=== PATIENT | male | born 1975 | race African-American/Black ===

== ENCOUNTER 2017-06-04 10:38 | Emergency (ER) | payer SELFPAY ==
[2017-06-04] MEDS ORDERED: PENICILLIN VK 500 MG TAB PO ONE (12:42)
--- NOTE | 2017-06-04 12:42 | EDPHY ---
H & P Time Seen by Provider: 06/04/17 12:29 HPI/ROS: CHIEF COMPLAINT: Dental pain HISTORY OF PRESENT ILLNESS: 41-year-old male presents with dental pain. Onset left upper dental pain 3 days ago. The pain has been gradually increasing since then and is constant. Having difficulty eating because of pain. Associated with some swelling. No fever. ROS: No numbness, weakness, bleeding, syncopal episode, other injury. Past Medical/Surgical History: Denies Smoking Status: Current every day smoker Physical Exam: General Appearance: Alert, pleasant Eyes: Pupils equal and round ENT, Mouth: tenderness and swelling over the gumline of the left upper molars, upper molar tenderness, Mucous membranes moist, no facial swelling Neck: Normal inspection, no adenopathy or swelling Skin: Warm and dry, no rash Psychiatric: Mood and affect normal Constitutional: Initial Vital Signs Temperature (C) 36.4 C 06/04/17 10:46 Heart Rate 64 06/04/17 10:46 Respiratory Rate 18 06/04/17 10:46 Blood Pressure 156/103 H 06/04/17 10:46 O2 Sat (%) 100 06/04/17 10:46 O2 Delivery Mode Room Air Allergies/Adverse Reactions: No Known Allergies Allergy (Unverified 06/04/17 10:46) Home Medications: Medication Instructions Recorded Hydrocodone/APAP 5/325 [[place] 1 - 2 tab PO Q4H PRN #15 tab 06/04/17 5/325 (*)] Penicillin V Potassium 500 mg PO TID #30 tablet 06/04/17 Departure - Departure Disposition: Home, Routine, Self-Care Clinical Impression: Dental abscess Condition: Good Instructions: Dental Abscess (ED) Referrals: [facility] [Outside] - As per Instructions (Call to make an appointment or go to the clinic.) Prescriptions: Hydrocodone/APAP 5/325 [[place] 5/325 (*)] 1 - 2 tab PO Q4H PRN #15 tab PRN Reason: Pain, Moderate Penicillin V Potassium 500 mg PO TID #30 tablet
[2017-06-04] MEDS ORDERED: PENICILLIN VK 250 MG TAB ONE (12:53)
[2017-06-04 13:14] VITALS: BP 145/98; PULSE 74; RESP 20; TEMP 98.2; O2SAT 95
== END 2017-06-04 13:10 | disposition home or self-care (01) ==
DX: K04.7 Periapical abscess without sinus (principal); F17.200 Nicotine dependence, unspecified, uncomplicated

== ENCOUNTER 2017-08-07 19:59 | Emergency (ER) | payer SELFPAY ==
[2017-08-07 20:16] VITALS: RESP 18
[2017-08-07] MEDS ORDERED: AZITHROMYCIN 250 MG TAB PO ONE (20:23)
--- NOTE | 2017-08-07 20:26 | EDPHY ---
H & P Stated Complaint: COUGH AND CONGESTION WITH FEVER X 4 DAYS Time Seen by Provider: 08/07/17 20:18 HPI/ROS: CHIEF COMPLAINT: Cough HISTORY OF PRESENT ILLNESS: The patient is a 42-year-old man with no significant past medical history comes to the emergency department complaining of a staccato cough that ends in vomiting. He states that his had these symptoms a few days ago but is now improving. He has not had a fever. No trouble breathing. No headache. No chest pain. REVIEW OF SYSTEMS: Constitutional: denies: chills, fever, recent illness, recent injury EENTM: denies: blurred vision, double vision, nose congestion Respiratory: see HPI Cardiac: denies: chest pain, irregular heart rate, lightheadedness, palpitations Gastrointestinal/Abdominal: denies: abdominal pain, diarrhea, nausea, vomiting, blood streaked stools Genitourinary: denies: dysuria, frequency, hematuria, pain Musculoskeletal: denies: joint pain, muscle pain Skin: denies: lesions, rash, jaundice, bruising Neurological: denies: headache, numbness, paresthesia, tingling, dizziness, weakness Hematologic/Lymphatic: denies: blood clots, easy bleeding, easy bruising Immunologic/allergic: denies: HIV/AIDS, transplant EXAM: GENERAL: Well-appearing, well-nourished and in no acute distress. HEAD: Atraumatic, normocephalic. EYES: Pupils equal round and reactive to light, extraocular movements intact, sclera anicteric, conjunctiva are normal. ENT: TMs normal, nares patent, oropharynx erythematous without exudates. Moist mucous membranes. NECK: Normal range of motion, supple without lymphadenopathy or JVD. LUNGS: Breath sounds clear to auscultation bilaterally and equal. No wheezes rales or rhonchi. HEART: Regular rate and rhythm without murmurs, rubs or gallops. ABDOMEN: Soft, nontender, normoactive bowel sounds. No guarding, no rebound. No masses appreciated. BACK: No CVA tenderness, no spinal tenderness, step-offs or deformities EXTREMITIES: Normal range of motion, no pitting or edema. No clubbing or cyanosis. NEUROLOGICAL: Cranial nerves II through XII grossly intact. Normal speech, normal gait. 5/5 strength, normal movement in all extremities, normal sensation PSYCH: Normal mood, normal affect. SKIN: Warm, dry, normal turgor, no visible rashes or lesions. Source: Patient Exam Limitations: No limitations - Personal History Current Tetanus/Diphtheria Vaccine: No - Medical/Surgical History Hx Asthma: No Hx Chronic Respiratory Disease: No Hx Diabetes: No Hx Cardiac Disease: No Hx Renal Disease: No Hx Cirrhosis: No Hx Alcoholism: No Hx HIV/AIDS: No Hx Splenectomy or Spleen Trauma: No Other PMH: htn(stopped taking meds)HASNT TAKEN MEDS IN 9 YEARS - Family History Significant Family History: No pertinent family hx - Social History Smoking Status: Current every day smoker Alcohol Use: Sober Drug Use: None Constitutional: Initial Vital Signs Temperature (C) 37.1 C 08/07/17 20:12 Heart Rate 86 08/07/17 20:12 Respiratory Rate 18 08/07/17 20:12 Blood Pressure 183/120 H 08/07/17 20:12 O2 Sat (%) 97 08/07/17 20:12 O2 Delivery Mode Room Air Allergies/Adverse Reactions: No Known Allergies Allergy (Unverified 06/04/17 10:46) Home Medications: Medication Instructions Recorded AZITHROMYCIN [Z-PACK] 250 mg PO DAILY #6 tab 08/07/17 Medical Decision Making ED Course/Re-evaluation: The patient's symptoms are consistent with pertussis. He has not had a pertussis vaccine recently. I will start him on azithromycin. He agrees with this plan. He declines further workup or testing at this time. Otherwise he is well appearing. Differential Diagnosis: Partial list of the Differential diagnosis considered include but were not limited to; pertussis, sinusitis, upper respiratory tract infection and although unlikely based on the history and physical exam, I also considered pneumonia, pneumothorax, PE, acute coronary disease. - Data Points Microbiology Results: MICROBIOLOGY 08/07/17 20:33 Nasal, Sinus - Anaerobic Tube/Swab Respiratory Panel (PCR) - Final Human Rhinovirus/Enterovirus Medications Given: Discontinued Medications Azithromycin (Zithromax) 500 mg PO EDNOW ONE PRN Reason: Protocol Stop: 08/07/17 20:24 Last Admin: 08/07/17 20:30 Dose: 500 mg Departure - Departure Disposition: Home, Routine, Self-Care Clinical Impression: Cough Condition: Fair Instructions: Pertussis (ED), Acute Cough (ED) Referrals: NONE *PRIMARY CARE P,. [Primary Care Provider] - As per Instructions [facility],. [Clinic] - As per Instructions Stand Alone Forms: Work Excuse Prescriptions: AZITHROMYCIN [Z-PACK] 250 mg PO DAILY #6 tab
[2017-08-07 20:58] VITALS: BP 169/105; PULSE 71; TEMP 98.2; O2SAT 98
== END 2017-08-07 20:58 | disposition home or self-care (01) ==
DX: R05 Cough (principal); I10 Essential (primary) hypertension; F17.200 Nicotine dependence, unspecified, uncomplicated

== ENCOUNTER 2017-08-25 13:47 | Emergency (ER) | payer SELFPAY ==
[2017-08-25] MEDS ORDERED: LORazepam 1 MG TAB PO ONE (16:05)
--- NOTE | 2017-08-25 16:06 | EDPHY ---
H & P Stated Complaint: abdominal cramping x 1 year. states goes between, constipation & diarrhea Time Seen by Provider: 08/25/17 15:54 HPI/ROS: CHIEF COMPLAINT: Diarrhea, constipation x1 year l HISTORY OF PRESENT ILLNESS: 42-year-old male with no prior history of abdominal surgeries, local primary care provider, took the bus to the ER, stating for the past 1 year he has had intermittent episodes waxing between constipation and diarrhea. He will sometimes experience abdominal cramping. Today when he is having a bowel movement stated he had push really hard to get the stool out of experienced abdominal cramping. He is currently asymptomatic. He watched multiple YouTube videos before coming to the ER and states that he is concerned that he may have colon cancer or irritable bowel syndrome based on videos he watched. At no point has experienced nausea or vomiting. He drinks heavy alcohol on a daily basis, last drink of alcohol was last evening. States that he is currently feeling anxious and tremulous as well. He denies genitalia pain. Denies urinary abnormality. Denies back or flank pain. PRIMARY CARE PROVIDER: none REVIEW OF SYSTEMS: A ten point review of systems was performed and is negative with the exception of the items mentioned in the HPI PAST MEDICAL & SURGICAL HISTORY: No history of abdominal surgeries SOCIAL HISTORY: Heavy daily alcohol use last drink last evening PHYSICAL EXAM (Prior to examination, patient consented to physical exam, hands were washed and my usual and customary physical exam procedures followed) 1) GENERAL: Well-developed, well-nourished, alert and oriented. Appears to be in no acute distress. He is resting comfortably when I enter the room, appears well. Tremulous 2) HEAD: Normocephalic, atraumatic 3) HEENT: Pupils equal, round, reactive to light bilaterally. Sclera anicteric. Nasopharynx, oropharynx, clear, no lesions. Moist mucous membranes 4) NECK: Full range of motion, no meningeal signs. 5) LUNGS: Clear auscultation bilaterally, no wheezes, no rhonchi, no retractions. 6) HEART: Regular rate and rhythm, no murmur, no heave, no gallop. 7) ABDOMEN: No guarding, no rebound, no focal tenderness, negative McBurney's, negative Gilliland's, negative Rovsing's, negative peritoneal sign, I am unable to elicit any abdominal pain whatsoever 8) MUSCULOSKELETAL: Moving all extremities, no focal areas of tenderness, no obvious trauma. No peripheral edema or discoloration. 9) BACK: No CVA tenderness, no midline vertebral tenderness, no fluctuance, no step-off, no obvious trauma, no visual or palpable abnormality. 10) SKIN: No rash, no petechiae. 11) normal male external genitalia bilateral testicles descended, nontender, non high-riding, bilateral cremasteric reflex present and brisk bilaterally. No scrotal abnormality such as cellulitis or Kaushal's gangrene. . DIFFERENTIAL DIAGNOSIS: My differential diagnosis includes, but is not limited to, acute appendicitis, acute cholecystitis, bowel obstruction, acute pancreatitis, testicular torsion, gastritis and urinary tract infection. The patient understands that this diagnosis is provisional and can never be 100% accurate. This is a partial list of diagnoses considered. These considerations are based on history, physical exam, past history and reassessment. - Personal History Current Tetanus/Diphtheria Vaccine: Unsure Current Tetanus Diphtheria and Acellular Pertussis (TDAP): Unsure - Medical/Surgical History Hx Asthma: No Hx Chronic Respiratory Disease: No Hx Diabetes: No Hx Cardiac Disease: No Hx Renal Disease: No Hx Cirrhosis: No Hx Alcoholism: No Hx HIV/AIDS: No Hx Splenectomy or Spleen Trauma: No Other PMH: htn(stopped taking meds)HASNT TAKEN MEDS IN 9 YEARS - Social History Smoking Status: Current every day smoker Constitutional: Initial Vital Signs Temperature (C) 36.7 C 08/25/17 13:59 Heart Rate 120 H 08/25/17 13:59 Respiratory Rate 18 08/25/17 13:59 Blood Pressure 160/120 H 08/25/17 13:59 O2 Sat (%) 97 08/25/17 13:59 O2 Delivery Mode Room Air Allergies/Adverse Reactions: No Known Allergies Allergy (Unverified 06/04/17 10:46) Medical Decision Making ED Course/Re-evaluation: 4:20 p.m.: This patient appears well, he has no complaints of abdominal pain, I am unable to elicit any pain on exam both initially or with serial examinations. I think that acute surgical abdominal pathology such as acute appendicitis, less than likely in this patient. He is tremulous and tachycardic at this time and I upon further interview of the patient he notes heavy daily alcohol use last drink of alcohol last evening. Discussed possibility of acute alcohol withdrawal. He will be given oral benzodiazepine re-evaluated. At this time I do not think that diagnostic studies for abdominal pain are currently definitively indicated. Care of patient under supervision of secondary supervising physician Dr Erwin. 4:54 p.m.: Patient was given oral Ativan re-evaluated at this time, is tremors have decreased significantly. I checked his heart rate at this time which is 83. He remains with no abdominal pain or complaints. Plan will be discharge in given primary care and GI follow-up information and usual and customary abdominal precautions and instructions. He feels comfortable with this plan. - Data Points Medications Given: Discontinued Medications Lorazepam (Ativan) 2 mg PO EDNOW ONE Stop: 08/25/17 16:06 Last Admin: 08/25/17 16:39 Dose: 2 mg Departure - Departure Disposition: Home, Routine, Self-Care Clinical Impression: Alcohol use Diarrhea Qualifiers: Diarrhea type: unspecified type Qualified Code(s): R19.7 - Diarrhea, unspecified Condition: Good Instructions: Chronic Diarrhea (ED), Constipation (ED) Additional Instructions: Seek immediate medical attention if you develop new or worsening symptoms, if you develop fevers, chills, inability to tolerate oral intake or any other symptoms that concerns you. Please consider long-term sobriety from alcohol Referrals: [facility],. [Clinic] - As per Instructions Kevin Otero MD [Medical Doctor] - 5-7 days, call for appt. (Dr. Otero is a balance wheel screw hole tapper)
[2017-08-25 17:11] VITALS: BP 148/112; PULSE 83; RESP 16; TEMP 98.2; O2SAT 96
== END 2017-08-25 17:10 | disposition home or self-care (01) ==
DX: R19.7 Diarrhea, unspecified (principal); I10 Essential (primary) hypertension; F17.200 Nicotine dependence, unspecified, uncomplicated; Z72.89 Other problems related to lifestyle